=== PATIENT | female | born 1950 | race Caucasian/White ===

== ENCOUNTER 2017-02-16 15:25 | Observation (INO) | payer OTHER ==
[~2017-02-16] VITALS: Ht 167.6 cm; Wt 86.0 kg
[~2017-02-16 15:25] MED LIST: ALENDRONATE SOD70 MG PO; AZITHROMYCIN250 MG1 PO; CIPRO500 MG PO; LOSARTAN POTAS100 MG PO; METOPROLOL SUCC25 MG PO; OMEPRAZOLE40 M1 PO; PRAVASTATIN SOD40 MG PO; PT DOES NOT KNOW; RANITIDINE HCL300 M1 PO; ZOFRAN4 MG PO
[2017-02-16 18:01] LABS: HEMATOCRIT 37.1 % (36.0-46.0); MCH 29.9 PG (29.0-34.0); MCHC 33.7 G/DL (30.0-36.0); MCV 88.8 FL (83-99); MEAN PLAT.VOLUME 9.3 uM^3 (9.5-12.4); PLATELET COUNT 242 K/uL (156-360); RBC DIS.WIDTH-CV 13.3 % (11.8-14.6); RBC DIS.WIDTH-SD 43.7 % (39-53); RED BLOOD COUNT 4.18 M/uL (3.80-5.20); WHITE BLOOD COUNT 9.2 K/uL (4.1-10.2)
[2017-02-16 18:11] LABS: CHLORIDE 107 mEq/L (99-109); POTASSIUM 3.5 mEq/L (3.7-5.4); SODIUM 142 mEq/L (136-147)
[2017-02-16 18:13] LABS: GLUCOSE 88 mg/dL (70-99)
[2017-02-16 18:14] LABS: ANION GAP 10 MEQ/L (2-14)
[2017-02-16 18:17] LABS: GFR ESTIMATE (CALCULATED) > 59 mL/min/; UREA NITROGEN (BUN) 15 mg/dL (9-23)
[2017-02-16 18:24] LABS: TROP-I INTERPRETATION NEGATIVE; TROPONIN-I 0.03 ng/mL (0.0-0.30)
[2017-02-16] MEDS ORDERED: TOPROL XL50 MG PO (19:58)
[2017-02-16] MEDS ORDERED: CARDIZEM CD,CA240 MG PO (19:59)
[2017-02-16] MEDS ORDERED: PROAIR HFA8.5 GM IH (19:59)
[2017-02-16] MEDS ORDERED: CALCIUM 600 +1 EAC1 PO (19:59)
[2017-02-16 23:21] VITALS: BP 138/76
[2017-02-17 03:48] VITALS: BP 147/77
[2017-02-17 06:46] LABS: TROP-I INTERPRETATION NEGATIVE; TROPONIN-I < 0.01 ng/mL (0.0-0.30)
[2017-02-17 07:42] VITALS: BP 172/87
[2017-02-17 12:22] VITALS: BP 168/76
[2017-02-17] MEDS ORDERED: ROXICODONE5 MG PO (14:31)
[2017-02-17 16:10] VITALS: BP 164/74
== END 2017-02-17 15:55 | disposition home or self-care (01) ==
LOC: EME 15:25 → 5WEST 21:21 → EDOF 21:21 → 5WEST 23:14
PROVIDERS: Emergency Medicine; Physician Assistant Medical
DX: R07.89 Other chest pain (principal); I10 Essential (primary) hypertension; R60.0 Localized edema; R91.1 Solitary pulmonary nodule; J45.20 Mild intermittent asthma, uncomplicated; Q61.3 Polycystic kidney, unspecified; F41.1 Generalized anxiety disorder; F32.9 Major depressive disorder, single episode, unspecified; E06.5 Other chronic thyroiditis; E78.5 Hyperlipidemia, unspecified; M19.90 Unspecified osteoarthritis, unspecified site; G43.909 Migraine, unspecified, not intractable, without status migrainosus; Z86.718 Personal history of other venous thrombosis and embolism; E66.9 Obesity, unspecified; Z68.31 Body mass index [BMI] 31.0-31.9, adult
CPT/HCPCS: 71020; 78582; 80048; 83880; 84484; 85027; 93005; 93970; 94010; 94640; 99202; 99281; 99284; A9540; A9567; G0378; J1650; J2270